=== PATIENT | male | born 1935 | race Caucasian/White ===

== ENCOUNTER 2018-02-14 02:45 | Inpatient (IN) ==
--- NOTE | 2018-02-14 03:55 | Emergency Department Note ---
START Narrative - START START: I examined this patient and my medical decision-making was reviewed with the Resident Physician. I agree with the documented findings, disposition and treatment plan as described except to the extent set forth below. 82-year-old male presents to the ER with right inguinal swelling. Patient was a transfer from another outlying ER facility. Patient has a reducible right inguinal hernia. They did a CT scan at the outlying emergency room with which showed concerns for possible bowel obstruction secondary to this hernia. This was on all new hernia that started last evening. He has had one bout of vomiting. no diarrhea or constipation. no fevers. We did speak with general surgery who will admit the patient to their service. I was able to reduce this right inguinal hernia without much difficulty but it does come right back.
--- NOTE | 2018-02-14 04:03 | Emergency Department Note ---
Disposition Clinical Impression: Right inguinal hernia Disposition: Admitted As Inpatient Condition: Good Time of Disposition: 03:00 Abdominal Pain HPI - General Chief Complaint: ED Urogenital-Male Stated Complaint: right side groin pain Time Seen by Provider: 02/14/18 03:53 Source: patient, family, EMS Mode of arrival: EMS Limitations: no limitations Nursing Notes Reviewed: Yes Vital Signs Reviewed: Yes - History of Present Illness HPI Narrative: Patient is an 82-year-old male presented today from a transfer from [facility] due to right groin pain and right inguinal hernia. Patient states that around 8 PM on 02/13/2018, he noticed pain in the right groin and noticed a hernia protruding out. Denies any falls, injuries, heavy lifting, straining. Denies any history of right heel on a hernia. He does report a history of left inguinal hernia that was repaired in the past. He said that he had one episode of vomiting. He presented to outside facility and had CT imaging performed. CT imaging report shows small amount of edema, also distention of bowel loop in the right inguinal hernia that is concerning for possibly developing small bowel obstruction. Patient was given pain medication and then transferred here. Patient currently denies any current pain, nausea, any additional vomiting. No bowel movement since yesterday morning. His last bowel movement was reported as normal, nonbloody. No other abdominal pain, dysuria, hematuria. - Related Data Allergies Allergy/AdvReac Type Severity Reaction Status Date / Time No Known Drug Allergies Allergy Swelling Verified 02/14/18 04:24 of the Eye All systems ED: reviewed and negative except as stated. Constitutional: Denies: fever Cardiovascular: Denies: chest pain Respiratory: Denies: dyspnea Gastrointestinal: Reports: vomiting, other. Denies: abdominal pain, nausea, diarrhea, constipation Genitourinary: Reports: other. Denies: urgency, dysuria Neurological: Denies: headache, weakness, numbness, paresthesias Abdominal Pain PMH - Past Medical History Medical history: Reports: no medical history Physical Exam - General Limitations: no limitations General appearance: alert, in no apparent distress - Head Head exam: atraumatic, normocephalic, normal inspection - Eye Eye exam: Present: normal appearance, PERRL, EOMI - ENT ENT exam: normal exam, normal oropharynx, mucous membranes moist - Neck Neck exam: Present: normal inspection, full ROM, trachea midline - Chest Chest inspection: Present: normal inspection, symmetric chest wall rise - Respiratory Respiratory exam: Present: normal lung sounds bilaterally - Cardiovascular Cardiovascular exam: Present: regular rate, normal rhythm, normal heart sounds - Abdominal Exam Abdominal exam: Present: soft, Non-Tender. Absent: tenderness, distention, guarding, rebound, rigidity - Male exam: Present: inguinal hernia (Large right-sided inguinal hernia, soft, no overlying erythema or color change, easily reducible but immediately protrudes back out when not holding pressure.) - Extremities Exam Extremities exam: Present: normal inspection, full ROM. Absent: tenderness, pedal edema - Neurological Exam Neurological exam: Present: alert, oriented X3 - Psychiatric Psychiatric exam: Present: normal affect, normal mood - Skin Skin exam: Present: warm, dry, intact, normal color Course Course Narrative: Triston GALLEGOS. Physical exam shows: Large right-sided inguinal hernia, soft, no overlying erythema or color change, easily reducible but immediately protrudes back out when not holding pressure. I talked with surgery, Dr. Castillo, discussed imaging results from outside facility along with physical exam. No concern at this time for incarcerated hernia. Surgery recommended that we admit the patient for observation since hernia keeps protruding despite attempts to reduce it and history of vomiting. This was discussed with the patient and he was agreeable with this plan. Admitted to Dr. Castillo. Vital Signs Temperature 98.1 F 02/14/18 02:45 Pulse Rate 74 02/14/18 02:45 Respiratory Rate 18 02/14/18 02:45 Blood Pressure 124/69 02/14/18 02:45 O2 Sat by Pulse Oximetry 95 02/14/18 02:45 Temperature 98.0 F 02/14/18 04:05 Pulse Rate 59 02/14/18 04:05 Respiratory Rate 17 02/14/18 04:05 Blood Pressure 109/62 02/14/18 04:05 O2 Sat by Pulse Oximetry 93 02/14/18 04:05 Oxygen Delivery Oxygen Delivery Nasal Cannula Abdominal Pain - MDM Narrative Medical decision making narrative: Triston GALLEGOS. Physical exam shows: Large right-sided inguinal hernia, soft, no overlying erythema or color change, easily reducible but immediately protrudes back out when not holding pressure. I talked with surgery, Dr. Castillo, discussed imaging results from outside facility along with physical exam. No concern at this time for incarcerated hernia. Surgery recommended that we admit the patient for observation since hernia keeps protruding despite attempts to reduce it and history of vomiting. This was discussed with the patient and he was agreeable with this plan. Admitted to Dr. Castillo. - Medical Records Medical records reviewed: Yes I reviewed the patient's medical records. - Radiology Data Radiology results reviewed: Yes I reviewed the patient's radiology results. S.B.A.R. - S.B.A.R. Situation: Demographics, MOA Background: Presenting Complaint, Relevant PMH, Meds, & Allergies Assessment: Vital Signs, Course and respsone to treatment, Exam Concerns, Patient/Family Expectation, Pertinant Lab Results Recommendation: Barrier(s) to disposition, Recommendation based on pending studies, treatments, or consults S.B.A.R. Report Given to: Dr. Castillo
[2018-02-14] MEDS ORDERED: *HR* OxyCODONE/APAP 10/325 TABLET PO PRN (04:27)
[2018-02-14] MEDS ORDERED: 0.9 % Sodium Chloride 1,000 ML IVC SCH (04:30)
[2018-02-14] MEDS ORDERED: Ondansetron 4 MG/2 ML VIAL IVP PRN (05:13)
[2018-02-14] MEDS ORDERED: Ondansetron 4 MG/2 ML VIAL IVP SCH (06:00)
[2018-02-14 06:56] LABS: Basophils % 0.7 %; Eosinophils % 0.5 %; Hematocrit 38.2 % (37.5-50.1); Hemoglobin 12.3 g/dL (12.9-16.9); Immature Granulocytes % 0.4 % (0-4); Lymphocytes # 1.4 K/mcL (0.6-4.6); Lymphocytes % 25.1 %; Mean Corpuscular HGB Conc 32.2 g/dL (31.6-35.5); Mean Corpuscular Hemoglobin 30.3 pg (28.0-33.3); Mean Corpuscular Volume 94.1 fL (83.0-100.0); Mean Platelet Volume 10.9 fL (9.4-12.4); Monocytes # 0.6 K/mcL (0.0-1.3); Monocytes % 11.2 %; Neutrophils # 3.5 K/mcL (1.6-8.9); Platelet Count 173 K/mcL (140-400); Red Blood Count 4.06 M/mcL (4.19-5.50); Red Cell Distribution Width 12.5 % (11.5-14.5); Segmented Neutrophils % 62.1 %
[2018-02-14 07:06] LABS: BUN/Creatinine Ratio 13 (6-26); Blood Urea Nitrogen 11 mg/dL (8-23); Calcium 8.7 mg/dL (8.6-10.3); Carbon Dioxide 35 mEq/L (23-29); Chloride 111 mEq/L (98-107); Glucose 110 mg/dL (70-105); Osmolality,Calculated 290 (280-300); Sodium 140 mEq/L (136-145); eGFR For African Americans > 60 (> 60); eGFR For Non-African Americans > 60 (> 60)
--- NOTE | 2018-02-14 08:53 | General Surg History&Physical ---
<Fahad Sarmiento - Last Filed: 02/14/18 10:23> Date of Encounter: 02/14/18 Time of Encounter: 09:00 Assessment and Plan (1) Right inguinal hernia Current Visit: Yes Status: Acute The patient does have evidence of a R inguinal hernia, which is reducible. Hernia defect approx 2cm in diameter. Patient and discussed with Dr. Castillo recommendation and plan for hernioplasty versus herniorraphy in the OR tomorrow 02/15. The patient does not present with signs of of bowel obstruction, sepsis, acute abdomen, or gangrene. Clear liquid diet until midnight. The assessment and plan as outlined above was discussed with the patient and/or family members who expressed understanding and agreement. All questions were answered. History of Present Illness Chief complaint: R groin pain HPI: Mr. Ndiaye is a 82 [facility] who presents after transfer from [facility] with 1 day onset of R groin pain. PMH significant for L sided hernia repair several years ago, hyperlipidemia, denies CAD/stroke. He notes a palpable mass that he states is able to be pushed in which occasionally hurts along the R groin and through the R flank; he has had a non-bloody bowel movement early Wednesday. He denies fever, nausea, or abdominal pain currently. Past Med Surg Social Fam HX - Past Medical History Medical history: no medical history - Past Surgical History Surgical History: orthopedic, other - Social History Smoking Status: Former smoker Smokeless Tobacco Status: No Alcohol use: none Drug use: none Medications and Allergies 3 Allergy/AdvReac Type Severity Reaction Status Date / Time No Known Drug Allergies Allergy Swelling Verified 02/14/18 04:24 of the Eye Review of Systems All systems PM: reviewed and no additional remarkable complaints except as stated All systems PM: The remainder of the systems were reviewed and are negative - Constitutional no chills, no fever(s) - EENT Nose, mouth and throat: no dizziness - Cardiovascular no chest pain, no dyspnea on exertion - Respiratory no dyspnea - Gastrointestinal no abdominal pain, no bloating, no constipation, no diarrhea, no melena - Genitourinary other (R groin mass), no hematuria - Musculoskeletal other (no leg swelling), no joint swelling - Integumentary no unusual bruising - Neurological no headache(s) - Psychiatric no anxiety General Surgery Exam Initial Vital Signs Temp Pulse Resp BP Pulse Ox 98.1 F 74 18 124/69 95 02/14/18 02:45 02/14/18 02:45 02/14/18 02:45 02/14/18 02:45 02/14/18 02:45 - General physical appearance well developed, well nourished, no distress - Eyes normal ocular movement - ENT normal mucosa - Neck no masses, no lymphadectomy, no venous distension - Respiratory normal expansion, normal respiratory effort, clear to auscultation - Cardiovascular Cardiovascular exam: Present: RRR, NR, no murmurs/rubs/gallops. Absent: JVD - Abdomen Abdomen general surgery: Present: bowel sounds present, soft, non tender. Absent: guarding, rebound, rigid Hernia: Present: reducible, inguinal (Right) - Neurologic Present: normal coordination, normal sensation - Psychiatric Psychiatric general surgery: Present: A&Ox3, appropriate, oriented to person Results - Labs 02/14/18 06:27 02/14/18 06:27 Abnormal lab results RBC 4.06 M/mcL (4.19-5.50) L 02/14/18 06:27 Hgb 12.3 g/dL (12.9-16.9) L 02/14/18 06:27 Chloride 111 mEq/L (98-107) H 02/14/18 06:27 Carbon Dioxide 35 mEq/L (23-29) H 02/14/18 06:27 Glucose 110 mg/dL (70-105) H 02/14/18 06:27 Diabetes panel 02/14/18 Range/Units 06:27 Sodium 140 (136-145) mEq/L Potassium 4.0 (3.5-5.1) mEq/L Chloride 111 H (98-107) mEq/L Carbon Dioxide 35 H (23-29) mEq/L BUN 11 (8-23) mg/dL Creatinine 0.83 (0.70-1.30) mg/dL Glucose 110 H (70-105) mg/dL Calcium 8.7 (8.6-10.3) mg/dL Calcium panel 02/14/18 Range/Units 06:27 Calcium 8.7 (8.6-10.3) mg/dL Pituitary panel 02/14/18 Range/Units 06:27 Sodium 140 (136-145) mEq/L Potassium 4.0 (3.5-5.1) mEq/L Chloride 111 H (98-107) mEq/L Carbon Dioxide 35 H (23-29) mEq/L BUN 11 (8-23) mg/dL Creatinine 0.83 (0.70-1.30) mg/dL Glucose 110 H (70-105) mg/dL Calcium 8.7 (8.6-10.3) mg/dL Adrenal panel 02/14/18 Range/Units 06:27 Sodium 140 (136-145) mEq/L Potassium 4.0 (3.5-5.1) mEq/L Chloride 111 H (98-107) mEq/L Carbon Dioxide 35 H (23-29) mEq/L BUN 11 (8-23) mg/dL Creatinine 0.83 (0.70-1.30) mg/dL Glucose 110 H (70-105) mg/dL Calcium 8.7 (8.6-10.3) mg/dL All other labs normal. <Jose E Castillo - Last Filed: 02/14/18 13:59> Date of Encounter: 02/14/18 History of Present Illness HPI: Mr. Ndiaye is a 82 year old male Review of Systems All systems PM: The remainder of the systems were reviewed and are negative General Surgery Exam Initial Vital Signs Temp Pulse Resp BP Pulse Ox 98.1 F 74 18 124/69 95 02/14/18 02:45 02/14/18 02:45 02/14/18 02:45 02/14/18 02:45 02/14/18 02:45 Results - Labs 02/14/18 06:27 02/14/18 06:27 Abnormal lab results RBC 4.06 M/mcL (4.19-5.50) L 02/14/18 06:27 Hgb 12.3 g/dL (12.9-16.9) L 02/14/18 06:27 Chloride 111 mEq/L (98-107) H 02/14/18 06:27 Carbon Dioxide 35 mEq/L (23-29) H 02/14/18 06:27 Glucose 110 mg/dL (70-105) H 02/14/18 06:27 Diabetes panel 02/14/18 Range/Units 06:27 Sodium 140 (136-145) mEq/L Potassium 4.0 (3.5-5.1) mEq/L Chloride 111 H (98-107) mEq/L Carbon Dioxide 35 H (23-29) mEq/L BUN 11 (8-23) mg/dL Creatinine 0.83 (0.70-1.30) mg/dL Glucose 110 H (70-105) mg/dL Calcium 8.7 (8.6-10.3) mg/dL Calcium panel 02/14/18 Range/Units 06:27 Calcium 8.7 (8.6-10.3) mg/dL Pituitary panel 02/14/18 Range/Units 06:27 Sodium 140 (136-145) mEq/L Potassium 4.0 (3.5-5.1) mEq/L Chloride 111 H (98-107) mEq/L Carbon Dioxide 35 H (23-29) mEq/L BUN 11 (8-23) mg/dL Creatinine 0.83 (0.70-1.30) mg/dL Glucose 110 H (70-105) mg/dL Calcium 8.7 (8.6-10.3) mg/dL Adrenal panel 02/14/18 Range/Units 06:27 Sodium 140 (136-145) mEq/L Potassium 4.0 (3.5-5.1) mEq/L Chloride 111 H (98-107) mEq/L Carbon Dioxide 35 H (23-29) mEq/L BUN 11 (8-23) mg/dL Creatinine 0.83 (0.70-1.30) mg/dL Glucose 110 H (70-105) mg/dL Calcium 8.7 (8.6-10.3) mg/dL All other labs normal. - Attending Attestation I examined this patient and my medical decision-making was reviewed with the Resident Physician. I agree with the documented findings, disposition and treatment plan as described except to the extent set forth below. The patient is seen and evaluated on morning rounds. He initially had incarcerated inguinal hernia. During transportation and reevaluation of the emergency room at [place] the hernia is now reducible. The hernia was back out when the patient was up on the floor. I personally reduced his hernia with a minimum of effort he has reducible inguinal hernia at this point and I think that repair tomorrow is reasonable. I discussed the risks and benefits with the patient understands and wishes to proceed.
--- NOTE | 2018-02-14 19:57 | Anesthesia Evaluation PreOp ---
Date of Encounter: 02/14/18 Time of Encounter: 19:55 - Past History Planned Operation: Right Inguinal Hernia Repair Cardiac History: Hyperlipidemia Pulmonary History: Former smoker (quit in 1988), Snore DELINQUENCY COUNSELOR History: Denies Any Significant HX Other Medical History: GERD Anesthesia History: No Prior Anesthetic Complications, Past Anesthesia Alcohol Use: none Drug use: none Medications and Allergies Ascorbate Calcium [Vitamin C] 500 mg PO DAILY 02/14/18 [History] Aspirin/Sod Bicarb/Citric Acid [Dana-Patrick Original Tab Eff] 2 tab PO HS 02/14 [History] Cetirizine HCl [All Day Allergy] 10 mg PO DAILY 02/14/18 [History] Ergocalciferol (VITAMIN D2) [Vitamin D] 400 unit PO DAILY 02/14/18 [History] Omeprazole [PriLOSEC] 20 mg PO DAILY 02/14/18 [History] Simvastatin [Zocor] 40 mg PO HS 02/14/18 [History] Terazosin HCl 4 mg PO HS 02/14/18 [History] Vit C/E/Zn/Coppr/Lutein/Zeaxan [Preservision Areds 2 Softgel] 1 cap PO DAILY 07/26 [History] Vitamin E Acetate [Vitamin E] 400 unit PO DAILY 02/14/18 [History] 3 Allergy/AdvReac Type Severity Reaction Status Date / Time No Known Drug Allergies Allergy Swelling Verified 02/14/18 04:24 of the Eye - Meds/Allergy Pre-op Review Medications Reviewed: Yes Allergies Reviewed: Yes Beta Blockers on Current Med List: No Anesthesia Results - Labs 02/14/18 06:27 02/14/18 06:27 Anesthesia Exam Vital Signs/O2 Sat, Most Current Temp Pulse Resp BP Pulse Ox 98.8 F 70 16 104/65 97 02/14/18 18:47 02/14/18 18:47 02/14/18 18:47 02/14/18 18:47 02/14/18 18:47 Height: 5'7''/1.7 m Weight: 150 lbs/68.4 Pain Scale: 0 Pain Scale Used: Numeric (1 - 10) - HEENT Pupil (Motor): EOMI Mallampati: II Teeth: Missing, Poor dentition Denture Type: Lower: Partial Oral Opening: Greater than 3 - DELINQUENCY COUNSELOR LOC: Oriented DELINQUENCY COUNSELOR Motor: Normal RUE, Normal LUE, Normal RLE, Normal LLE, Normal Face DELINQUENCY COUNSELOR Sensory: Normal: RUE, LUE, RLE, LLE, Face - Cardiac Rhythm: Regular Murmur: None - Pulmonary Breath Sounds: bilateral Clear Respiratory Effort: Symmetrical Anesthesia Assess/Plan ASA Score: 2 Modified H[place]ons Scale for Level of Consciousness: Cooperative, oriented, and tranquil Anesthetic Plan: General Monitoring Plan: Standard Monitors Recovery Plan: PACU
[2018-02-15 05:32] LABS: Basophils # 0.1 K/mcL (0.0-0.2); Basophils % 0.9 %; Eosinophils # 0.1 K/mcL (0.0-0.6); Eosinophils % 2.4 %; Hematocrit 39.4 % (37.5-50.1); Hemoglobin 12.7 g/dL (12.9-16.9); Immature Granulocytes % 0.5 % (0-4); Lymphocytes # 1.8 K/mcL (0.6-4.6); Lymphocytes % 30.4 %; Mean Corpuscular HGB Conc 32.2 g/dL (31.6-35.5); Mean Corpuscular Hemoglobin 30.2 pg (28.0-33.3); Mean Corpuscular Volume 93.8 fL (83.0-100.0); Monocytes # 0.6 K/mcL (0.0-1.3); Monocytes % 10.6 %; Neutrophils # 3.2 K/mcL (1.6-8.9); Platelet Count 166 K/mcL (140-400); Red Cell Distribution Width 12.6 % (11.5-14.5); Segmented Neutrophils % 55.2 %
[2018-02-15 05:41] LABS: BUN/Creatinine Ratio 11 (6-26); Blood Urea Nitrogen 8 mg/dL (8-23); Calcium 8.7 mg/dL (8.6-10.3); Carbon Dioxide 28 mEq/L (23-29); Chloride 108 mEq/L (98-107); Glucose 86 mg/dL (70-105); Osmolality,Calculated 286 (280-300); Potassium 4.4 mEq/L (3.5-5.1); Sodium 139 mEq/L (136-145); eGFR For African Americans > 60 (> 60); eGFR For Non-African Americans > 60 (> 60)
[2018-02-15] MEDS ORDERED: ceFAZolin 1,000 MG, Sodium Chloride IRRigation 1,000 ML IR ONE (06:00)
[2018-02-15] MEDS ORDERED: 0.9 % Sodium Chloride 1,000 ML IVC SCH ×2 (10:30→18:23)
[2018-02-15] MEDS ORDERED: Lidocaine -MPF 4% 5 ML AMPUL ONE (15:45)
[2018-02-15] MEDS ORDERED: *HR* Rocuronium Bromide 50 MG/5 ML VIAL ONE (15:45)
[2018-02-15] MEDS ORDERED: Ondansetron 4 MG/2 ML VIAL ONE (15:45)
[2018-02-15] MEDS ORDERED: *HR* Propofol 200 MG/20 ML VIAL IVP ONE (15:45)
[2018-02-15] MEDS ORDERED: Dexamethasone 4 MG/ML VIAL ONE (15:45)
[2018-02-15] MEDS ORDERED: *HR* FentaNYL (PF) 100 MCG/2 ML VIAL ONE ×2 (15:45→16:23)
[2018-02-15] MEDS ORDERED: Lidocaine -MPF 2% 2 ML VIAL ONE (15:45)
[2018-02-15] MEDS ORDERED: Acetaminophen IV 1,000 MG/100 ML INFUS..BTL ONE (15:53)
[2018-02-15] MEDS ORDERED: Famotidine 20 MG/2 ML VIAL ONE (15:53)
[2018-02-15] MEDS ORDERED: EPHEDrine 50 MG/ML VIAL ONE (16:11)
--- NOTE | 2018-02-15 17:06 | Operative Note ---
Date of procedure: 02/15/18 Pre-op diagnosis: Right inguinal hernia, initially incarcerated, reduced preoperatively Post-op diagnosis: same Procedure: Repair of right inguinal hernia with mesh. The right temporary pain pump. Anesthesia: HA Surgeon: Jose E Castillo Was there an buyer assistant present: No Estimated blood loss (cc): 10 Specimen: None Condition: stable Disposition: PACU Procedure in Detail: After informed consent patient was taken to the major operating suite and placed supine position given adequate general endotracheal anesthesia. The right groin is prepped and draped in sterile fashion utilizing ChloraPrep standard draping techniques. Timeout was taken patient was identified. I made an oblique incision and dissected down the level of the external abdominal oblique. I divided from lateral to medial through the external ring. The ilioinguinal nerve was preserved. I circumferentially dissected the cord and retracted this laterally. There was a large direct inguinal hernia defect. This was circumferentially dissected and returned to the preperitoneal space. I placed a large Bard plug. This was circumferentially secured to the deep aspect of the internal abdominal oblique, arcuate ligament, and the shelving edge of Poupart's ligament. This reconstructed the medial wall of the internal ring. This gave an excellent technical result. I then affixed the Len patch to the shelving edge of Poupart's ligament inferiorly and to the arcuate ligament and internal abdominal oblique superiorly. The lateral extensions of the Len patch were then secured with 2 [id number] stitches thus reconstructing the internal ring. This gave an excellent technical result. I dissected laterally between the internal and external abdominal oblique and made a counterincision with #15 blade. I then passed the Angiocath between the internal and external abdominal oblique and place the On-Q pain pump catheter. I attached the terminal reservoir and started the flow of Marcaine. The external abdominal oblique was closed with interrupted 2-0 Vicryl and the skin was closed with multiple layers of interrupted 2-0 Vicryl and running 4-0 Vicryl. He tolerated the procedure very well and was transferred to recovery in stable condition.
--- NOTE | 2018-02-15 17:11 | Discharge Summary ---
Date of Encounter: 02/15/18 Time of Encounter: 17:19 - Discharge Diagnosis (1) Right inguinal hernia Priority: Primary Status: Acute General Surgery Exam Initial Vital Signs Temp Pulse Resp BP Pulse Ox 98.1 F 74 18 124/69 95 02/14/18 02:45 02/14/18 02:45 02/14/18 02:45 02/14/18 02:45 02/14/18 02:45 - General physical appearance well developed, well nourished, no distress - Respiratory clear to percussion, clear to auscultation - Hospital Course Hospital course: Mr. Ndiaye is a 82 year old male - Time Spent with Patient Total time spent providing and/or coordinating discharge services: - Discharge Medications Prescriptions: Oxycodone HCl/Acetaminophen [Percocet 10-325 mg Tablet] 1 each PO Q6H PRN 7 Days #28 tablet PRN Reason: Pain Home Medications: Ascorbate Calcium [Vitamin C] 500 mg PO DAILY 02/14/18 [History] Aspirin/Sod Bicarb/Citric Acid [Dana-[place] Original Tab Eff] 2 tab PO HS 02/14 [History] Cetirizine HCl [All Day Allergy] 10 mg PO DAILY 02/14/18 [History] Ergocalciferol (VITAMIN D2) [Vitamin D] 400 unit PO DAILY 02/14/18 [History] Omeprazole [PriLOSEC] 20 mg PO DAILY 02/14/18 [History] Simvastatin [Zocor] 40 mg PO HS 02/14/18 [History] Terazosin HCl 4 mg PO HS 02/14/18 [History] Vit C/E/Zn/Coppr/Lutein/Zeaxan [Preservision Areds 2 Softgel] 1 cap PO DAILY 07/26 [History] Vitamin E Acetate [Vitamin E] 400 unit PO DAILY 02/14/18 [History] Oxycodone HCl/Acetaminophen [Percocet 10-325 mg Tablet] 1 each PO Q6H PRN 7 Days #28 tablet 02/15/18 [Rx] Allergies/Adverse Reactions: 3 Allergy/AdvReac Type Severity Reaction Status Date / Time No Known Drug Allergies Allergy Swelling Verified 02/14/18 04:24 of the Eye Date of admission: 02/14/18 04:02 Primary care physician: [facility] Discharging clinician: Jose E Castillo Labs on day of discharge: Labs from last 24 hours 02/15/18 02/15/18 02/15/18 05:39 04:52 04:52 WBC 5.9 RBC 4.20 Hgb 12.7 L Hct 39.4 MCV 93.8 MCH 30.2 MCHC 32.2 RDW 12.6 Plt Count 166 MPV 11.0 Immature Gran % 0.5 Seg Neutrophils % 55.2 Lymphocytes % 30.4 Monocytes % 10.6 Eosinophils % 2.4 Basophils % 0.9 Neutrophils # 3.2 Lymphocytes # 1.8 Monocytes # 0.6 Eosinophils # 0.1 Basophils # 0.1 Sodium 139 Potassium 4.4 Chloride 108 H Carbon Dioxide 28 BUN 8 Creatinine 0.76 Est GFR ( Amer) > 60 Est GFR (Non-Af Amer) > 60 BUN/Creatinine Ratio 11 Glucose 86 POC Glucose 88 Calculated Osmolality 286 Calcium 8.7 - Patient Status Condition: Good - Discharge Instructions [facility] With: [facility]Primary Care Provider[facility] - Forms: ED Satisfaction Letter, Work/School Release - Diet and Activity Activity: increase activity as tolerated
--- NOTE | 2018-02-15 17:27 | Anesthesia Evaluation Post Op ---
Date of Encounter: 02/15/18 Time of Encounter: 17:30 - Vital Signs Vital Signs: Vital Signs/O2 Sat/Glucose, Most Current Temp Pulse Resp BP Pulse Ox 02/15/18 17:24 76 16 140/71 96 02/15/18 17:14 98.7 F 83 14 133/70 97 - Lungs Lungs: Clear Ascult./Percussion - Airway Airway: Non-obstructed - Cardiovascular Regular Rate - Mental Status Mental Status: Alert & Oriented, Answers Appropriately - Pain Pain Scale: 0 - Nausea Vomiting Nausea Vomiting: Not Present - Hydration Hydration: Ice chips - Discharge PostOp Status: Transfer Patient to floor
[2018-02-15] MEDS ORDERED: *HR* Heparin 5,000 UNIT/ML VIAL SQ SCH (18:00)
[2018-02-15] MEDS ORDERED: Ondansetron 4 MG/2 ML VIAL IVP PRN (18:23)
[2018-02-15] MEDS ORDERED: *HR* OxyCODONE/APAP 10/325 TABLET PO PRN (18:23)
--- NOTE | 2018-02-15 23:52 | Electrocardiograph Report ---
[address] [address] Test Date: 2018-02-14 Pat Name: Jesu Ndiaye Department: 115 Room: [facility] Gender: M Team Foreman: TLS : 1935 Requested By: Victorino Albarran Order Number: [id number] Reading MD: Erin Lockett Measurements Intervals [place] Rate: 57 P: 50 TX: 150 QRS: 3 QRSD: 89 T: 30 QT: 389 QTc: 383 Interpretive Statements SINUS BRADYCARDIA Electronically Signed On 02-15-2018 23:50:55 EDT by Erin Lockett
[2018-02-16] MEDS ORDERED: *HR* Heparin 5,000 UNIT/ML VIAL SQ SCH (06:00)
[2018-02-16 07:15] VITALS: BP 109/60
--- NOTE | 2018-02-16 09:56 | Discharge Summary ---
<Fahad Sarmiento - Last Filed: 02/16/18 10:06> Date of Encounter: 02/16/18 Time of Encounter: 09:30 - Discharge Diagnosis (1) Right inguinal hernia Priority: Primary Status: Acute General Surgery Exam Initial Vital Signs Temp Pulse Resp BP Pulse Ox 98.1 F 74 18 124/69 95 02/14/18 02:45 02/14/18 02:45 02/14/18 02:45 02/14/18 02:45 02/14/18 02:45 - General physical appearance well developed, well nourished, no distress - Eyes normal ocular movement - ENT normal mucosa - Neck no lymphadectomy - Respiratory normal respiratory effort, clear to auscultation - Cardiovascular Cardiovascular exam: Present: RRR, regular rhythm. Absent: rubs, gallop - Abdomen Abdomen general surgery: Present: bowel sounds present, soft, non tender - Incision Incision: Present: clean and dry. Absent: red, swollen - Genitourinary Present: normal penis with no external lesions - Neurologic Present: normal sensation - Psychiatric Psychiatric general surgery: Present: A&Ox3, appropriate, oriented to person, oriented to place, oriented to time - Hospital Course Hospital course: Mr. Ndiaye is a 82 year old male who presented with 1 day onset of right reducible inguinal pain/hernia on 02/13. Patient was admitted for evaluation and surgical repair of hernia with Mesh by Dr. Castillo performed on 02/15. Patient tolerated procedure well, was able to urinate post-op and was without significant pain after procedure. Patient was discharged with hernia care instructions and Ultram with stable vitals and normal basic chemistries. - Time Spent with Patient Total time spent providing and/or coordinating discharge services: - Discharge Medications Prescriptions: Tramadol HCl [Ultram] 50 mg PO Q6H PRN 7 Days #28 tab PRN Reason: Pain Home Medications: Ascorbate Calcium [Vitamin C] 500 mg PO DAILY 02/14/18 [History] Aspirin/Sod Bicarb/Citric Acid [Dana-[place] Original Tab Eff] 2 tab PO HS 02/14 [History] Cetirizine HCl [All Day Allergy] 10 mg PO DAILY 02/14/18 [History] Ergocalciferol (VITAMIN D2) [Vitamin D] 400 unit PO DAILY 02/14/18 [History] Omeprazole [PriLOSEC] 20 mg PO DAILY 02/14/18 [History] Simvastatin [Zocor] 40 mg PO HS 02/14/18 [History] Terazosin HCl 4 mg PO HS 02/14/18 [History] Vit C/E/Zn/Coppr/Lutein/Zeaxan [Preservision Areds 2 Softgel] 1 cap PO DAILY 07/26 [History] Vitamin E Acetate [Vitamin E] 400 unit PO DAILY 02/14/18 [History] Tramadol HCl [Ultram] 50 mg PO Q6H PRN 7 Days #28 tab 02/16/18 [Rx] Allergies/Adverse Reactions: 3 Allergy/AdvReac Type Severity Reaction Status Date / Time No Known Drug Allergies Allergy Swelling Verified 02/14/18 04:24 of the Eye Date of admission: 02/15/18 16:04 [facility] care physician: [facility] - Patient Status Disposition: Home, Self-Care Condition: Good Functional capacity at discharge: independent ambulation Overall status at discharge: patient is progressing back to baseline - Discharge Instructions Follow Up With: Erin Hernandes CNP [Advanced Practice Nurse] - 03/03/18 8:45 am Forms: ED Satisfaction Letter, Work/School Release Additional Instructions: Shower starting tomorrow 02/17, no tub baths for 2 weeks. Discontinue your pain bulb when empty (typically after 48h) Wash incisions with soap and water and pat dry daily. No lifting/pushing/pulling greater than 15 [address] x [address] off narcotics and safe to react in car. May climb stairs. - Diet and Activity Activity: increase activity as tolerated Diet: advance to your usual diet <Jose E Castillo - Last Filed: 02/18/18 16:54> Date of Encounter: 02/16/18 General Surgery Exam Initial Vital Signs Temp Pulse Resp BP Pulse Ox 98.1 F 74 18 124/69 95 02/14/18 02:45 02/14/18 02:45 02/14/18 02:45 02/14/18 02:45 02/14/18 02:45 - Hospital Course Hospital course: Mr. Ndiaye is a 82 year old male - Time Spent with Patient Total time spent providing and/or coordinating discharge services: Date of admission: 02/15/18 16:04 Primary care physician: [facility] - Attending Attestation I examined this patient and my medical decision-making was reviewed with the Resident Physician. I agree with the documented findings, disposition and treatment plan as described except to the extent set forth below. The patient is seen and evaluated with resident after surgery. The details are discussed with the clinical nurse practitioner. The patient is ready for discharge. Jonathan Castillo MD FACS
== END 2018-02-16 11:02 | disposition home or self-care (01) | DRG 352 ==
LOC: 3ANU 02:45 → EMEROO 02:45 → 3ANU 03:55
PROVIDERS: ADMIT Surgery; ATTEND Surgery